=== PATIENT | male | born 1960 | race Caucasian/White ===

== ENCOUNTER 2020-09-24 23:50 | Inpatient (IN) | payer OTHER ==
[~2020-09-24 23:50] MED LIST: ALLOPURINOL300 MG PO; AMLODIPINE BESY10 MG PO; ASPIRIN EC81 MG PO; BUSPIRONE HCL7.5 MG PO; CARAFATE1 GM PO; CHLORTHALIDONE25 MG PO; ISOSORBIDE DINI30 MG PO; NEXIUM40 MG PO; NORCO 5-325 TA1 EACH PO; PEPCID AC20 MG PO; PRALUENT P75 MG/1 ML SC; TOPROL XL 50 MG50 MG PO; XARELTO2.5 MG PO; ZESTRIL40 MG PO; ZETIA10 MG PO; ZOFRAN8 MG PO; ZOLOFT100 MG PO
[2020-09-25 00:47] LABS: BASOPHIL 0.6 % (0-2); EOSINOPHIL 1.3 % (0-5); HCT 38.3 % (42.0-52.0); HGB 12.3 g/dl (13.2-18.0); LYMPHOCYTE 17.6 % (15-48); MCH 30.4 pg (25.0-31.0); MCHC 32.1 g/dL (32.0-36.0); MCV 94.6 fL (78.0-100.0); MONOCYTE 8.6 % (0-12); NEUTROPHIL 71.5 % (41-80); NRBC 0; PLT 300 K/uL (150-400); RBC 4.05 M/uL (4.70-6.00); RDW 14.5 % (11.5-14.0); WBC 11.2 K/uL (4.0-10.5)
[2020-09-25 01:04] LABS: BILIRUBIN - TOTAL 0.4 mg/dL (0.2-1.0); BUN/CREAT RATIO (CALC) 9.3 RATIO; CREATININE 1.08 mg/dL (0.67-1.17); GLOBULIN (CALCULATION) 3.5 g/dL; TOTAL PROTEIN 6.5 g/dL (6.4-8.2)
[2020-09-25 01:17] LABS: PRO-BNP 1991 pg/mL (<125)
[2020-09-25 01:19] LABS: LACTIC ACID 1.5 mmol/L (0.4-1.9)
[2020-09-25 02:23] LABS: INR 2.01 (0.9-1.2); PROTHROMBIN TIME 21.7 SECONDS (11.4-13.6); PTT 44.5 SECONDS (22.2-34.7)
[2020-09-25 03:23] LABS: BILIRUBIN NEGATIVE (NEGATIVE); BLOOD 3+ Ery/uL (NEGATIVE); CLARITY CLEAR (CLEAR); COLOR YELLOW (YELLOW); GLUCOSE (U) NORMAL (NORMAL); LEUKOCYTES NEGATIVE Leu/uL (NEGATIVE); NITRITE NEGATIVE (NEGATIVE); PROTEIN 2+ mg/dL (NEGATIVE); SPECIFIC GRAVITY 1.025 (1.001-1.030); UROBILINOGEN 0.2 mg/dL (0.2-1.0); pH 5.5 (5.0-9.0)
[2020-09-25 03:29] LABS: URINARY WBC RARE
[2020-09-25 03:30] LABS: BACTERIA 1+
[2020-09-25] MEDS ORDERED: ALLOPURINOL 30300 MG PO (10:47)
[2020-09-25] MEDS ORDERED: AMIODARONE HCL200 MG PO (10:50)
[2020-09-25] MEDS ORDERED: LOPRESSOR25 MG PO (10:50)
[2020-09-25] MEDS ORDERED: ZOLOFT100 MG PO (10:52)
[2020-09-25] MEDS ORDERED: WARFARIN SODIU2.5 MG PO (10:58)
[2020-09-25] MEDS ORDERED: ASPIRIN EC81 MG PO (11:01)
[2020-09-25] MEDS ORDERED: PEPCID AC20 MG PO (11:01)
[2020-09-25] MEDS ORDERED: BUSPAR5 MG PO (11:03)
--- NOTE | 2020-09-25 12:30 | NUR ---
09/25/20 Please consider discharge or full admit.
--- NOTE | 2020-09-25 14:34 | NUR ---
Comment on original assessment regarding a visit was incorrect. Meant for another pt.
[2020-09-26 06:29] LABS: BASOPHIL 0.6 % (0-2); EOSINOPHIL 2.2 % (0-5); HCT 35.2 % (42.0-52.0); HGB 11.4 g/dl (13.2-18.0); LYMPHOCYTE 16.2 % (15-48); MCH 30.8 pg (25.0-31.0); MCHC 32.4 g/dL (32.0-36.0); MCV 95.1 fL (78.0-100.0); MONOCYTE 7.7 % (0-12); MPV 10.3 fL (6.0-9.5); NEUTROPHIL 73.2 % (41-80); NRBC 0; PLT 236 K/uL (150-400); RDW 14.4 % (11.5-14.0); WBC 6.8 K/uL (4.0-10.5)
[2020-09-26 06:50] LABS: INR 2.86 (0.9-1.2); PROTHROMBIN TIME 28.6 SECONDS (11.4-13.6)
[2020-09-26 06:58] LABS: BUN/CREAT RATIO (CALC) 7.2 RATIO; CREATININE 1.11 mg/dL (0.67-1.17); POTASSIUM 3.5 mmol/L (3.5-5.1)
--- NOTE | 2020-09-26 14:13 | NUR ---
09/26/20 Mr. Vargas lives at home with his spouse. He does not use DME. He is followed by [facility] . [facility] was notified of admission via [employer].
[2020-09-27 04:15] LABS: BASOPHIL 0.6 % (0-2); EOSINOPHIL 2.2 % (0-5); HGB 11.5 g/dl (13.2-18.0); LYMPHOCYTE 21.6 % (15-48); MCH 30.2 pg (25.0-31.0); MCHC 31.9 g/dL (32.0-36.0); MCV 94.5 fL (78.0-100.0); MONOCYTE 10.3 % (0-12); MPV 10.1 fL (6.0-9.5); NEUTROPHIL 65.1 % (41-80); NRBC 0; PLT 236 K/uL (150-400); RBC 3.81 M/uL (4.70-6.00); RDW 14.3 % (11.5-14.0); WBC 6.3 K/uL (4.0-10.5)
[2020-09-27 04:23] LABS: INR 3.39 (0.9-1.2); PROTHROMBIN TIME 32.7 SECONDS (11.4-13.6)
[2020-09-27 04:31] LABS: BUN/CREAT RATIO (CALC) 5.6 RATIO; CREATININE 1.07 mg/dL (0.67-1.17)
[2020-09-28 04:47] LABS: BASOPHIL 0.6 % (0-2); HCT 37.4 % (42.0-52.0); HGB 12.2 g/dl (13.2-18.0); LYMPHOCYTE 20.1 % (15-48); MCH 30.2 pg (25.0-31.0); MCHC 32.6 g/dL (32.0-36.0); MCV 92.6 fL (78.0-100.0); MONOCYTE 9.2 % (0-12); MPV 10.6 fL (6.0-9.5); NEUTROPHIL 67.8 % (41-80); NRBC 0; PLT 278 K/uL (150-400); RBC 4.04 M/uL (4.70-6.00); RDW 14.1 % (11.5-14.0)
[2020-09-28 04:50] LABS: INR 3.62 (0.9-1.2); PROTHROMBIN TIME 34.4 SECONDS (11.4-13.6)
[2020-09-28 05:00] LABS: BUN/CREAT RATIO (CALC) 5.1 RATIO; CREATININE 0.99 mg/dL (0.67-1.17); POTASSIUM 2.7 mmol/L (3.5-5.1)
[2020-09-29 06:10] LABS: BASOPHIL 0.8 % (0-2); EOSINOPHIL 2.3 % (0-5); HCT 39.9 % (42.0-52.0); HGB 12.9 g/dl (13.2-18.0); LYMPHOCYTE 21.8 % (15-48); MCHC 32.3 g/dL (32.0-36.0); MCV 92.8 fL (78.0-100.0); MONOCYTE 8.1 % (0-12); NEUTROPHIL 66.7 % (41-80); NRBC 0; PLT 272 K/uL (150-400); RDW 14.4 % (11.5-14.0); WBC 7.4 K/uL (4.0-10.5)
[2020-09-29 06:19] LABS: INR 3.52 (0.9-1.2); PROTHROMBIN TIME 33.7 SECONDS (11.4-13.6)
[2020-09-29 06:32] LABS: BUN/CREAT RATIO (CALC) 4.8 RATIO; CREATININE 1.05 mg/dL (0.67-1.17); MAGNESIUM 1.7 mg/dL (1.8-2.4)
[2020-09-30 06:39] LABS: BASOPHIL 0.9 % (0-2); EOSINOPHIL 2.2 % (0-5); HCT 40.9 % (42.0-52.0); HGB 13.2 g/dl (13.2-18.0); LYMPHOCYTE 23.5 % (15-48); MCH 29.7 pg (25.0-31.0); MCHC 32.3 g/dL (32.0-36.0); MCV 91.9 fL (78.0-100.0); MONOCYTE 8.6 % (0-12); MPV 9.9 fL (6.0-9.5); NEUTROPHIL 64.3 % (41-80); NRBC 0; PLT 289 K/uL (150-400); RBC 4.45 M/uL (4.70-6.00); RDW 14.5 % (11.5-14.0)
[2020-09-30 06:49] LABS: INR 2.17 (0.9-1.2)
[2020-09-30 07:14] LABS: BUN/CREAT RATIO (CALC) 6.1 RATIO; CREATININE 1.14 mg/dL (0.67-1.17); POTASSIUM 3.4 mmol/L (3.5-5.1)
[2020-09-30] MEDS ORDERED: HCTZ12.5 MG PO (09:54)
[2020-09-30] MEDS ORDERED: K-DUR20 MEQ PO (09:54)
[2020-09-30] MEDS ORDERED: AUGMENTIN 875-1 EACH PO (09:54)
[2020-09-30] MEDS ORDERED: COZAAR100 MG PO (09:54)
[2020-09-30] MEDS ORDERED: NORCO 5-325 TA1 EACH PO (09:54)
[2020-09-30] MEDS ORDERED: NORVASC5 MG PO (09:54)
--- NOTE | 2020-09-30 12:27 | NUR ---
PATIENT IN STABLE CONDITION. DISCUSSED DISCHARGE INSTRUCTIONS WITH PATIENT AND . IV REMOVED.
--- NOTE | 2020-09-30 14:27 | NUR ---
09/30 [facility] was notified of discharge. [facility] was requested to draw INRs on 09/23/[address] Pace. [facility] has a standing order.
== END 2020-09-30 11:30 | disposition home health service (06) | DRG 392 ==
LOC: FER 23:50 → FMS 09-25 03:24
PROVIDERS: Emergency Medicine Emergency Medical Services; Hospitalist; Internal Medicine; ADMIT Allergy & Immunology Allergy
DX: K57.32 Diverticulitis of large intestine without perforation or abscess without bleeding (principal); R00.1 Bradycardia, unspecified; I10 Essential (primary) hypertension; E87.6 Hypokalemia; I48.91 Unspecified atrial fibrillation; K21.9 Gastro-esophageal reflux disease without esophagitis; M10.9 Gout, unspecified; F41.9 Anxiety disorder, unspecified; F17.200 Nicotine dependence, unspecified, uncomplicated; I25.10 Atherosclerotic heart disease of native coronary artery without angina pectoris; M19.90 Unspecified osteoarthritis, unspecified site; G43.909 Migraine, unspecified, not intractable, without status migrainosus; F32.9 Major depressive disorder, single episode, unspecified; I25.2 Old myocardial infarction; Z95.5 Presence of coronary angioplasty implant and graft; Z95.1 Presence of aortocoronary bypass graft; Z88.0 Allergy status to penicillin; Z88.6 Allergy status to analgesic agent; Z91.041 Radiographic dye allergy status; Z79.82 Long term (current) use of aspirin; Z90.49 Acquired absence of other specified parts of digestive tract; Z98.890 Other specified postprocedural states; Z98.42 Cataract extraction status, left eye; Z98.41 Cataract extraction status, right eye; Z20.822 Contact with and (suspected) exposure to COVID-19; Z95.2 Presence of prosthetic heart valve
CPT/HCPCS: 36415; 80048; 80053; 81001; 83605; 83735; 83880; 84145; 84484; 85025; 85610; 85730; 87088; 93005; 94010; 94760; 94762; C9113; J0360; J0696; J0743; J1170; J1885; J1940; J2270; J2405; J2543; J3475; J3480; J7030; U0002

== ENCOUNTER 2021-01-31 13:17 | Emergency (ER) | payer OTHER ==
[~2021-01-31 13:17] MED LIST changes: +ALLOPURINOL 30300 MG PO; +AMIODARONE HCL200 MG PO; +AUGMENTIN 875-1 EACH PO; +BUSPAR5 MG PO; +COZAAR100 MG PO; +HCTZ12.5 MG PO; +K-DUR20 MEQ PO; +LOPRESSOR25 MG PO; +NORVASC5 MG PO; +WARFARIN SODIU2.5 MG PO
[2021-01-31 14:39] LABS: BASOPHIL 0.8 % (0-2); EOSINOPHIL 0.7 % (0-5); HCT 39.1 % (42.0-52.0); HGB 13.2 g/dl (13.2-18.0); LYMPHOCYTE 22.9 % (15-48); MCH 28.8 pg (25.0-31.0); MCHC 33.8 g/dL (32.0-36.0); MCV 85.4 fL (78.0-100.0); NEUTROPHIL 68.1 % (41-80); NRBC 0; PLT 245 K/uL (150-400); RBC 4.58 M/uL (4.70-6.00); RDW 17.9 % (11.5-14.0); WBC 7.4 K/uL (4.0-10.5)
[2021-01-31 14:43] LABS: INR 2.05 (0.9-1.2)
[2021-01-31 14:49] LABS: BUN/CREAT RATIO (CALC) 10.3 RATIO; CREATININE 1.16 mg/dL (0.67-1.17); POTASSIUM 2.9 mmol/L (3.5-5.1)
== END 2021-01-31 16:20 | disposition other institution (70) ==
LOC: FER 13:17
PROVIDERS: Nurse Practitioner Family
DX: S12.691A Other nondisplaced fracture of seventh cervical vertebra, initial encounter for closed fracture (principal); S00.03XA Contusion of scalp, initial encounter; S00.411A Abrasion of right ear, initial encounter; I10 Essential (primary) hypertension; Z88.8 Allergy status to other drugs, medicaments and biological substances; Z91.041 Radiographic dye allergy status; W19.XXXA Unspecified fall, initial encounter; Y92.009 Unspecified place in unspecified non-institutional (private) residence as the place of occurrence of the external cause
CPT/HCPCS: 36415; 70450; 72125; 80048; 85025; 85610; J2270

== ENCOUNTER 2021-05-15 17:25 | Emergency (ER) | payer OTHER ==
[2021-05-15 19:26] LABS: INR 1.76 (0.9-1.2); PROTHROMBIN TIME 19.7 SECONDS (11.8-13.4)
[2021-05-15 19:27] LABS: BASOPHIL 0.5 % (0-2); EOSINOPHIL 0.4 % (0-5); HCT 36.9 % (42.0-52.0); HGB 12.2 g/dl (13.2-18.0); LYMPHOCYTE 14.7 % (15-48); MCHC 33.1 g/dL (32.0-36.0); MCV 87.6 fL (78.0-100.0); MONOCYTE 6.4 % (0-12); MPV 10.2 fL (6.0-9.5); NEUTROPHIL 77.6 % (41-80); NRBC 0; PLT 220 K/uL (150-400); RBC 4.21 M/uL (4.70-6.00); RDW 15.1 % (11.5-14.0); WBC 8.5 K/uL (4.0-10.5)
[2021-05-15 19:33] LABS: ALBUMIN 2.7 g/dL (3.4-5.0); BILIRUBIN - TOTAL 0.8 mg/dL (0.2-1.0); BUN/CREAT RATIO (CALC) 9.8 RATIO; CREATININE 1.23 mg/dL (0.67-1.17); GLOBULIN (CALCULATION) 3.4 g/dL; MAGNESIUM 1.6 mg/dL (1.8-2.4); TOTAL PROTEIN 6.1 g/dL (6.4-8.2)
[2021-05-15 19:35] LABS: POTASSIUM 2.2 mmol/L (3.5-5.1)
[2021-05-15 19:53] LABS: BILIRUBIN NEGATIVE (NEGATIVE); BLOOD 2+ Ery/uL (NEGATIVE); CLARITY CLEAR (CLEAR); COLOR YELLOW (YELLOW); GLUCOSE (U) NORMAL (NORMAL); LEUKOCYTES NEGATIVE Leu/uL (NEGATIVE); NITRITE NEGATIVE (NEGATIVE); PROTEIN 2+ mg/dL (NEGATIVE); SPECIFIC GRAVITY < 1.005 (1.001-1.030); UROBILINOGEN 0.2 mg/dL (0.2-1.0); pH 5.5 (5.0-9.0)
[2021-05-15 19:55] LABS: AMORPHOUS URATES CRYSTALS MODERATE; BACTERIA TRACE; SQUAMOUS EPITHELIAL CELLS RARE; URINARY RBC RARE
== END 2021-05-16 02:00 | disposition other institution (70) ==
LOC: FER 17:25
PROVIDERS: Emergency Medicine
DX: S72.031A Displaced midcervical fracture of right femur, initial encounter for closed fracture (principal); E87.6 Hypokalemia; E83.42 Hypomagnesemia; F17.210 Nicotine dependence, cigarettes, uncomplicated; Z88.0 Allergy status to penicillin; Z91.041 Radiographic dye allergy status; Z88.8 Allergy status to other drugs, medicaments and biological substances; Z20.822 Contact with and (suspected) exposure to COVID-19; W19.XXXA Unspecified fall, initial encounter; Y92.009 Unspecified place in unspecified non-institutional (private) residence as the place of occurrence of the external cause
CPT/HCPCS: 36415; 71045; 72192; 73502; 80053; 81001; 83735; 85025; 85610; 85730; 93005; J1170; J3480; U0002